=== PATIENT | female | born 1975 | race Caucasian/White ===

== ENCOUNTER → 2022-10-26 | Outpatient (CLI) | payer OTHER ==
--- NOTE | 2022-10-26 14:24 | P.SLEEP ---
History of Present Illness DATE: 10/26/2022 CONSULTATION/NEW PATIENT EVALUATION HISTORY OF PRESENT ILLNESS/SLEEP-WAKE EVALUATION: 57-year-old lady had been evaluated in the sleep center for always feeling not refreshed in the morning after awakenings from sleep, possible obstructive sleep apnea hypopnea syndrome. SLEEP SCHEDULE: Usually sleep schedule from 9 PM to 7 AM on weekdays from 9 PM to 8 AM on weekend. FALLING ASLEEP: Patient does have problems with falling asleep, although no TV in bedroom. Positive history of restless leg symptoms well falling asleep. DURING SLEEP: Patient usually sleeps on the side position. Patient wakes up from sleep up to 3 times with nocturia. In the morning patient wake up tired, has difficulties to put pretension, has problems with memory, concentration. No history of hypnogogical hallucinations, sleep paralysis, or cataplexy. DURING THE DAY/WAKE STATE: Patient feels sleepiness during the day. [place] sleepiness scale is in very high range of 21. Patient usually doesn't take naps although. PAST MEDICAL HISTORY: Migraines, possible depression. 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 MEDICATIONS: Botox procedure for migraines. SOCIAL HISTORY: Positive history of smoking for about 30 years presently half pack a day, alcohol consumption occasional. FAMILY HISTORY: Diabetes, cancer. REVIEW OF SYSTEMS: Awakenings from sleep, sleepiness during the day. No fevers. No double vision. No recent chest pain. No shortness of breath. No abdominal pain. No bleeding episodes. No blood in urine. No seizure episodes. PHYSICAL EXAMINATION: GENERAL: A pleasant patient without any distress. VITAL SIGNS: BP 135/80 , HR 75 , RR 12 , weight 235.6 pounds, height 5 foot 8 inches, body mass index 35.7 . HEENT: PERRLA, EOMI. Evaluation of oropharynx showed tongue protrudes midline, low position of soft palate Mallampati 4. NECK: Supple. No JVD. Thyroid is not palpable. 15 inches in circumference. LUNGS: Clear to percussion and to auscultation. Good air exchange. No wheezing or rhonchi. HEART: S1, S2 regular. No murmurs, gallops or rubs. ABDOMEN: Soft and nontender. Bowel sounds are present. No organomegaly appreciated. EXTREMITIES: No clubbing or cyanosis. FURNITURE MECHANIC: Awake, alert, and oriented x3. Cranial nerves 2 to 7 intact. There is no fasciculation or atrophy noted. No focal deficits observed. ASSESSMENT: 1. Multiple awakenings from sleep with nocturia, extremely low position of soft palate Mallampati 4, sleepiness with high [place] Sleepiness Scale of 21. Possible obstructive sleep apnea hypopnea syndrome. 2. Significant excessive daytime sleepiness, [place] Sleepiness Scale is 21 dictated necessity to include hypersomnia and narcolepsy and differential diagnosis. 3. Obesity BMI 35.7. 4. Restless leg symptoms. 5 migraines. 6 . History of possible depression episodes. 7. Smoking for about 30 years. PLAN: 1. Polysomnography for evaluation of patient's breathing during sleep and possible movements during sleep. Multiple sleep latency test if sleep study will be negative for obstructive sleep apnea hypopnea syndrome. 2. Lung plan after reading sleep study. 3. Preferable position during sleep on the side. 4. No driving if patient feels any sleepiness. Patient is aware of civil and criminal liability for unsafe driving. 5. Sleep hygiene with regular sleep time for at least 7.5-8 hours. 6. Watching and losing weight. Thank you very much for referring this patient for consultation. Sincerely, Guerrero Guerra MD, PhD, FAASM. Diplomat of [employer], Sleep Medicine Board by [employer] Archivist [facility] - Sleep Note Sleep Note: Temperature: Pulse Rate: Respiratory Rate: Blood Pressure: SpO2: Height: Weight: BMI: Neck Circumference:
== END ==
LOC: 3 N SLEEP 13:55
PROVIDERS: ATTEND Internal Medicine
DX: G47.419 Narcolepsy without cataplexy (principal); G47.10 Hypersomnia, unspecified; E66.9 Obesity, unspecified; G25.81 Restless legs syndrome; F17.210 Nicotine dependence, cigarettes, uncomplicated; G43.909 Migraine, unspecified, not intractable, without status migrainosus; Z68.35 Body mass index [BMI] 35.0-35.9, adult
CPT/HCPCS: 99211

== ENCOUNTER 2022-12-04 19:38 | Outpatient (CLI) | payer OTHER | END 2022-12-05 05:20 | disposition home or self-care (01) | LOC: 3 N SLEEP 19:38 | PROVIDERS: ATTEND Internal Medicine | DX: G47.33 Obstructive sleep apnea (adult) (pediatric) (principal) | CPT/HCPCS: 95810 ==

== ENCOUNTER → 2023-01-12 | Outpatient (CLI) | payer OTHER ==
--- NOTE | 2023-01-15 08:47 | MM ---
Reason for Exam: Screening (asymptomatic). Last mammogram was performed 2 year(s) and 2 month(s) ago. Patient History: Menarche at age 15. First Full-Term at age 23. Left ovary removed at age 29. Right ovary removed at age 29. Hysterectomy at age 29. Patient used Hormonal Contraceptives for 5 years. Risk Values: Olivia 5 year model risk: 0.7%. NCI Lifetime model risk: 7.6%. Prior Study Comparison: 04/18/2016 Bilateral MG screening mammo w CAD - 2, [facility] [place]. 12/27/2018 Bilateral MG screening mammo w CAD - 2, [facility] [place]. 11/04/2020 Bilateral MG screening mammo w CAD - 2, [facility] [place]. Tissue Density: The breast tissue is heterogeneously dense. This may lower the sensitivity of mammography. Findings: Analyzed By CAD. There is no suspicious group of microcalcifications or new suspicious mass in either breast. Overall Assessment: Negative, BI-RAD 1 Management: Screening Mammogram of both breasts in 1 year. . Patient should continue monthly self-breast exams. A clinical breast exam by your physician is recommended on an annual basis. This exam should not preclude additional follow-up of suspicious palpable abnormalities. Note on Olivia scores and lifetime risk: 1. A Olivia score greater than 3% is considered moderate risk. If this is the case, consider specialist referral to assess eligibility for a risk reducing agent. 2. If overall lifetime risk for the development of breast cancer is 20% or higher, the patient may qualify for future screening with alternating mammogram and breast MRI. Electronically signed and approved by: Curtis Robles M.D. Radiologis
== END | disposition home or self-care (01) ==
LOC: RADMAMWWP 10:25
PROVIDERS: ATTEND Family Medicine
DX: Z12.31 Encounter for screening mammogram for malignant neoplasm of breast (principal)
CPT/HCPCS: 77067

== ENCOUNTER 2023-04-18 09:03 | Day surgery (SDC) | payer OTHER ==
[~2023-04-18 09:03] MED LIST: LIDOCAINE 1% (10MG/ML) FOR IV START INTRADERMA PRN
--- NOTE | 2023-04-18 09:25 | P.GSHP ---
History of Present Illness H&P Date: 04/18/23 CHIEF COMPLAINT: Colon screen HISTORY OF PRESENT ILLNESS: The patient is a 48-year-old female who presents for colon screen. Lower endoscopy was offered for further evaluation and management. PAST MEDICAL HISTORY: Please see list. PAST SURGICAL HISTORY: Please see list. MEDICATIONS: Please see list. ALLERGIES: Please see list. SOCIAL HISTORY: No illicit drug use FAMILY HISTORY: No reports of Crohn disease or ulcerative colitis. REVIEW OF ORGAN SYSTEMS: CONSTITUTIONAL: No reports of fevers or chills. PHYSICAL EXAM: VITAL SIGNS: Stable GENERAL: Well-developed pleasant in no acute distress. HEENT: No scleral icterus. Extraocular movements grossly intact. Moist buccal mucosa. NECK: Supple without lymphadenopathy. CHEST: Unlabored respirations. Equal bilateral excursions. CARDIOVASCULAR: Regular rate and rhythm. Distal 2+ pulses. ABDOMEN: Soft, nontender, nondistended. MUSCULOSKELETAL: No clubbing, cyanosis, or edema. ASSESSMENT: 1. Colon screen. PLAN: 1. Recommend proceeding with a lower endoscopy Past Medical History Past Medical History: No Reported History History of Any Multi-Drug Resistant Organisms: None Reported Past Surgical History: Back Surgery, Hysterectomy, Orthopedic Surgery Additional Past Surgical History / Comment(s): ankle surgery Past Anesthesia/Blood Transfusion Reactions: No Reported Reaction Smoking Status: Current every day smoker - Past Family History Father Family Medical History: No Reported History Medications and Allergies Home Medications Medication Instructions Recorded Confirmed Type No Known Home Medications 04/13/23 04/13/23 History Allergies Allergy/AdvReac Type Severity Reaction Status Date / Time No Known Allergies Allergy Verified 04/13/23 13:58
[2023-04-18] MEDS: LACTATED RINGERS 1,000 ML IV SCH (09:54)
[2023-04-18 10:02] VITALS: TEMP 97.2
[2023-04-18] MEDS ORDERED: PROPOFOL 10 MG/ML 20 ML VIAL IV ONE (10:59)
--- NOTE | 2023-04-18 11:27 | P.PCN ---
Date of Procedure: 04/18/23 Description of Procedure: PREOPERATIVE DIAGNOSIS: Positive Cologuard. Colonoscopy screening POSTOPERATIVE DIAGNOSIS: Tubular adenoma sigmoid colon Internal hemorrhoids, grade 3 OPERATION: Colonoscopy to the ileocecal valve and appendiceal orifice, cecum Colonoscopy with hot snare polypectomy SURGEON: Katt Hall MD. ANESTHESIA: MAC. INDICATIONS: The patient is an 48-year-old female who presents with abnormal stool test. Benefits and risks were described and informed consent was obtained. DESCRIPTION OF PROCEDURE: The patient had undergone Sutab prep. The patient had been brought into the operating room and laid in the left lateral decubitus position. After adequate intravenous sedation, the rectum was examined with 2% lidocaine jelly. External hemorrhoids were encountered. The rectal tone was within normal limits. No lesions were palpated in the rectal vault. An Olympus colonoscope was advanced until the cecum, ileocecal valve and appendiceal orifice were clearly viewed. The prep was good. No sigmoid diverticulosis was encountered. Colonic polyps were found and removed. No evidence of focal colitis was found. Retroflexion of the scope demonstrated grade 3 internal hemorrhoids without active bleeding or inflammation. The colon was desufflated. The patient had tolerated the procedure well. Withdrawal time was over 6 minutes. FINDINGS: Aronchick preparation quality scale 1+ (1-5) Internal hemorrhoids, grade 3 External hemorrhoids, grade 3. No arteriovenous malformations. No sigmoid diverticulosis Removal of 1 polyp: - Snare polypectomy 30 cm from the anal verge, 5 mm tubulovillous adenoma No focal colitis. RECOMMENDATIONS: Repeat colonoscopy in 3 2026 Plan - Discharge Summary Discharge Rx Participant: No New Discharge Prescriptions: Continue No Known Home Medications Discharge Medication List No Known Home Medications 04/13/23 [History] Follow up Appointment(s)/Referral(s): Katt Hall MD [STAFF PHYSICIAN] - As Needed Patient Instructions/Handouts: Colorectal Polyps (GEN) Activity/Diet/Wound Care/Special Instructions: Repeat colonoscopy in 3 years2026 Discharge Disposition: HOME SELF-CARE
[2023-04-18 11:36] VITALS: PULSE 66
[2023-04-18 12:06] VITALS: BP 138/85
[2023-04-18 12:07] VITALS: RESP 14
== END 2023-04-18 12:46 | disposition home or self-care (01) ==
LOC: ORWHC2ENDO 09:03
PROVIDERS: ATTEND Surgery Plastic and Reconstructive Surgery
DX: D12.5 Benign neoplasm of sigmoid colon (principal); K64.2 Third degree hemorrhoids; F17.200 Nicotine dependence, unspecified, uncomplicated
CPT/HCPCS: 88305; 45385; J2704

== ENCOUNTER → 2024-01-18 | Outpatient (CLI) | payer OTHER ==
--- NOTE | 2024-01-21 17:37 | MM ---
Reason for Exam: Screening (asymptomatic). Last screening mammogram was performed 12 month(s) ago. Patient History: Menarche at age 15. First Full-Term at age 23. Left ovary removed at age 29. Right ovary removed at age 29. Hysterectomy at age 29. Patient used Hormonal Contraceptives for 5 years. Risk Values: Olivia 5 year model risk: 0.8%. NCI Lifetime model risk: 7.5%. Prior Study Comparison: 12/27/2018 Bilateral MG screening mammo w CAD - 2, [facility] [place]. 11/04/2020 Bilateral MG screening mammo w CAD - 2, [facility] [place]. 01/12/2023 Bilateral MG screening mammo w CAD, [facility]. Tissue Density: There are scattered areas of fibroglandular density. Findings: Analyzed By CAD. There is no suspicious group of microcalcifications or new suspicious mass in either breast. Overall Assessment: Negative, BI-RAD 1 Management: Screening Mammogram of both breasts in 1 year. . Patient should continue monthly self-breast exams. A clinical breast exam by your physician is recommended on an annual basis. This exam should not preclude additional follow-up of suspicious palpable abnormalities. Note on Olivia scores and lifetime risk: 1. A Olivia score greater than 3% is considered moderate risk. If this is the case, consider specialist referral to assess eligibility for a risk reducing agent. 2. If overall lifetime risk for the development of breast cancer is 20% or higher, the patient may qualify for future screening with alternating mammogram and breast MRI. [facility], , 01/21/2024 5:34 PM. Electronically signed and approved by: Julia Miles M.D. Radiologist
== END | disposition home or self-care (01) ==
LOC: RADMAMWWP 08:29
PROVIDERS: ATTEND Family Medicine
DX: Z12.31 Encounter for screening mammogram for malignant neoplasm of breast (principal); Z90.722 Acquired absence of ovaries, bilateral; R92.323 Mammographic fibroglandular density, bilateral breasts
CPT/HCPCS: 77067